=== PATIENT | male | born 1985 | race Caucasian/White ===

== ENCOUNTER 2017-10-03 16:43 | Emergency (ER) | payer MEDICAID, OTHER ==
[~2017-10-03] VITALS: Ht 172.7 cm; Wt 77.1 kg
[2017-10-03 16:56] VITALS: BP 124/72
[2017-10-03] MEDS ORDERED: cefTRIAXone SOD 1,000 MG VL IM ONE (22:45)
== END 2017-10-04 04:33 | disposition left against medical advice (07) ==
LOC: EDBD 16:43 → ER 17:00
DX: N50.811 Right testicular pain (principal); Z53.21 Procedure and treatment not carried out due to patient leaving prior to being seen by health care provider
CPT/HCPCS: 76870